=== PATIENT | female | born 1940 | race Two or more races ===

== ENCOUNTER 2023-10-12 12:36 | Emergency (ER) | payer OTHER ==
[~2023-10-12] VITALS: Ht 157.5 cm; Wt 64.4 kg
[~2023-10-12 12:36] MED LIST: COZAAR100 MG PO; GLIMEPIRIDE1 MG; GLUMETZA1000 MG; LIPITOR40 M1 PO; NORVASC5 MG PO; ZITHROMAX500 MG PO; ZYNCOF 20-400120 ML PO
[2023-10-12] MEDS ORDERED: CLONIDINE HCL 0.1 MG TABLET PO ONE (13:13)
[2023-10-12] MEDS ORDERED: LORazepam 1 MG TABLET PO ONE (13:15)
[2023-10-12] MEDS ORDERED: cloNIDine HCL 0.3 MG TABLET PO ONE (13:15)
== END 2023-10-12 15:41 | disposition home or self-care (01) ==
LOC: ER 12:37
DX: I10 Essential (primary) hypertension (principal); M77.31 Calcaneal spur, right foot; S79.821A Other specified injuries of right thigh, initial encounter; X50.9XXA Other and unspecified overexertion or strenuous movements or postures, initial encounter; Y93.89 Activity, other specified; Y92.89 Other specified places as the place of occurrence of the external cause; E11.9 Type 2 diabetes mellitus without complications; Z79.84 Long term (current) use of oral hypoglycemic drugs

== ENCOUNTER 2024-05-09 06:42 | Emergency (ER) | payer OTHER ==
[~2024-05-09] VITALS: Ht 157.5 cm; Wt 64.4 kg
[2024-05-09 06:48] VITALS: BP 133/79; O2SAT 98
[2024-05-09] MEDS ORDERED: ONDANSETRON HCL 2 MG/ML VIAL IV STA (07:20)
[2024-05-09] MEDS ORDERED: FAMOTIDINE/PF 20 MG/2 ML VIAL IV PUSH STA (07:21)
[2024-05-09] MEDS ORDERED: HYOSCYAMINE SULFATE 0.125 MG TAB.SUBL SL STA (07:24)
[2024-05-09] MEDS ORDERED: LACTOBACILLUS ACIDOPHILUS 1 CAP CAP PO STA (07:25)
[2024-05-09] MEDS ORDERED: 0.9 % SODIUM CHLORIDE 1,000 ML IV ONE (07:30)
[2024-05-09] MEDS ORDERED: HYOSCYAMINE SULFATE 0.125 MG TAB.SUBL ONE (07:46)
[2024-05-09] MEDS ORDERED: FAMOTIDINE/PF 20 MG/2 ML VIAL ONE (07:46)
[2024-05-09] MEDS ORDERED: ONDANSETRON HCL 2 MG/ML VIAL ONE (07:46)
[2024-05-09] MEDS ORDERED: LACTOBACILLUS ACIDOPHILUS 1 CAP CAP PO ONE (07:46)
[2024-05-09 08:07] LABS: HEMOGLOBIN 13.9 g/dL (12.0-15.00); MEAN CORPUSCULAR HEMOGLOBIN 29.1 pg (27.00-32.0); MEAN CORPUSCULAR HGB CONC 33.9 g/dl (32.0-36.0); PLATELET COUNT 206 K/uL (150-450); RED BLOOD COUNT 4.77 M/uL (4.00-6.00); RED CELL DISTRIBUTION WIDTH 14.1 % (11.5-14.5)
[2024-05-09 09:15] LABS: ALBUMIN 3.7 gm/dL (3.4-5.0); BILIRUBIN TOTAL 0.56 mg/dL (0.3-1.2); CALCIUM 9.7 mg/dL (8.5-10.1); CREATININE SERUM 0.83 mg/dL (0.55-1.02); GFR 65.81; GLOBULINA 3.2 G/DL (2.4-3.5); POTASSIUM 4.08 mEq/L (3.5-5.1); TOTAL PROTEIN 6.9 gm/dL (6.4-8.2)
[2024-05-09 09:46] LABS: PH,URINE 5.5 (5.0-8.0); URINE APPEARANCE Clear; URINE BILIRRUBIN Negative (NEGATIVE); URINE BLOOD Negative; URINE COLOR Yellow; URINE GLUCOSE Negative (NEGATIVE); URINE KETONE 15 (NEGATIVE); URINE LEUKOCYTE Moderate; URINE NITRATE Negative; URINE PROTEIN Negative (NEGATIVE); URINE UROBILINOGEN 0.2 E.U./dl
[2024-05-09 09:49] LABS: URINE BACTERIA 84.3 uL (0.0-1933)
[2024-05-09 10:25] LABS: URINE CAST 0.14 uL (0.0-1.40); URINE RBC 0.5 uL (0.0-20.8)
== END 2024-05-09 15:50 | disposition home or self-care (01) ==
LOC: ER 06:45
PROVIDERS: General Practice
DX: R11.10 Vomiting, unspecified (principal); R19.7 Diarrhea, unspecified
CPT/HCPCS: 36415; 96365; 96366; 99282; J2405; J3490; J7030

== ENCOUNTER 2024-08-03 20:42 | Emergency (ER) | payer OTHER ==
[~2024-08-03] VITALS: Ht 157.5 cm; Wt 61.2 kg
[2024-08-03] MEDS ORDERED: KETOROLAC TROMETHAMINE 30 MG VIAL ONE (22:09)
[2024-08-03] MEDS ORDERED: KETOROLAC TROMETHAMINE 30 MG VIAL IM STA (22:10)
== END 2024-08-03 22:51 | disposition home or self-care (01) ==
LOC: ER 20:56
DX: M54.50 Low back pain, unspecified (principal); X58.XXXA Exposure to other specified factors, initial encounter; Y93.89 Activity, other specified; Y92.89 Other specified places as the place of occurrence of the external cause
CPT/HCPCS: 72100; 96372; 99283; J1885

== ENCOUNTER 2024-12-17 17:39 | Emergency (ER) | payer OTHER ==
[~2024-12-17] VITALS: Ht 157.5 cm; Wt 59.0 kg
[2024-12-17 18:46] VITALS: BP 174/84; O2SAT 98
[2024-12-17] MEDS ORDERED: KETOROLAC TROMETHAMINE 60 MG VIAL IM STA (22:50)
[2024-12-17] MEDS ORDERED: CLINDAMYCIN PHOSPHATE 150 MG/ML (600mg) IM STA (22:51)
[2024-12-17] MEDS ORDERED: CLINDAMYCIN PHOSPHATE 150 MG/ML (300mg) ONE (22:52)
[2024-12-17] MEDS ORDERED: KETOROLAC TROMETHAMINE 60 MG VIAL IM ONE (22:53)
== END 2024-12-17 23:06 | disposition home or self-care (01) ==
LOC: ER 17:39
DX: L02.421 Furuncle of right axilla (principal); E11.9 Type 2 diabetes mellitus without complications; Z79.84 Long term (current) use of oral hypoglycemic drugs; I10 Essential (primary) hypertension
CPT/HCPCS: 96372; 99282; J1885; J3490

== ENCOUNTER 2024-12-18 10:49 | Emergency (ER) | payer OTHER ==
[~2024-12-18] VITALS: Ht 157.5 cm; Wt 63.0 kg
[2024-12-18 11:15] VITALS: BP 120/60; O2SAT 97
[2024-12-18] MEDS ORDERED: CEFTRIAXONE SODIUM 1,000 MG VIAL IM STA (11:35)
[2024-12-18] MEDS ORDERED: CEFTRIAXONE SODIUM 1,000 MG VIAL ONE (11:39)
[2024-12-18 12:01] LABS: BASO % 0.2 % (0.1-1.2); EOS # 0.21 (0.04-0.54); EOS % 2.3 % (0.7-7.0); LYMPH # 1.82 (1.18-3.74); LYMPH % 19.8 % (19.3-53.1); MEAN PLATELET VOLUME 11.70 fl (9.4-12.4); MONO # 0.50 (0.24-0.82); MONO % 5.4 % (4.7-12.5); NEUT # 6.62 (1.56-6.13); NEUT % 71.9 % (34.0-71.1); RED CELL DISTRIBUTION WIDTH 12.6 % (11.6-14.4)
[2024-12-18 12:39] LABS: ALT/SGPT 17.0 U/L (12-78); AST/SGOT 11.0 U/L (15-37); BILIRUBIN TOTAL 0.64 mg/dL (0.3-1.2); BUN CREA RATIO 23.0 (7.0-25.0); CREATININE SERUM 1.02 mg/dL (0.55-1.02); GFR 51.75; GLOBULINA 3.2 G/DL (2.4-3.5); OSMOLALITY SERUM 303.0 MOSM/KG (275-295)
[2024-12-18 12:45] LABS: GLUCOSE FASTING 417.0 mg/dL (65-100)
[2024-12-18] MEDS ORDERED: 0.9 % SODIUM CHLORIDE 1,000 ML IV STA (12:50)
[2024-12-18] MEDS ORDERED: INSULIN REGULAR, HUMAN 1,000 UNIT/10 ML UNITS IV STA (12:50)
== END 2024-12-18 15:39 | disposition home or self-care (01) ==
LOC: ER 10:49
PROVIDERS: General Practice
DX: L72.3 Sebaceous cyst (principal); L08.9 Local infection of the skin and subcutaneous tissue, unspecified; E11.65 Type 2 diabetes mellitus with hyperglycemia; Z79.84 Long term (current) use of oral hypoglycemic drugs
CPT/HCPCS: 36415; 96365; 96372; 99282; J0696; J3490